=== PATIENT | female | born 1970 | race Caucasian/White ===

== ENCOUNTER 2016-10-24 07:58 | Emergency (ER) | payer SELFPAY ==
[~2016-10-24] VITALS: Ht 152.4 cm; Wt 48.0 kg
[~2016-10-24 07:58] MED LIST: ALBU18HF2 IH
[2016-10-24 08:20] VITALS: BP 101/70
[2016-10-24] MEDS ORDERED: PREDNISONE 20MG TABLET PO STA (09:23)
[2016-10-24] MEDS ORDERED: ALBUTEROL (0.083%) 2.5MG/3ML NEB HHN STA (09:23)
[2016-10-24] MEDS ORDERED: IPRATROPIUM BROMIDE (0.02%) 0.5MG/2.5ML NEB HHN STA (09:23)
== END 2016-10-24 10:31 | disposition home or self-care (01) ==
LOC: ER 07:58
DX: J45.901 Unspecified asthma with (acute) exacerbation (principal)
CPT/HCPCS: 94640; 99283; J7512; J7611; Z7610

== ENCOUNTER 2016-11-07 17:01 | Emergency (ER) | payer MEDICAID ==
[~2016-11-07] VITALS: Ht 152.4 cm; Wt 46.0 kg
[2016-11-07] MEDS ORDERED: IPRATROPIUM BROMIDE (0.02%) 0.5MG/2.5ML NEB HHN ONE (23:15)
[2016-11-07] MEDS ORDERED: METHYLPREDNISOLONE SOD SUCC 40 MG/ML VIAL IM ONE (23:15)
[2016-11-07] MEDS ORDERED: IPRATROPIUM/ALBUTEROL 0.5-3(2.5)MG/3ML NEB ONE (23:38)
[2016-11-08 00:45] VITALS: BP 109/66
== END 2016-11-08 00:45 | disposition home or self-care (01) ==
LOC: ER 17:01
DX: J45.901 Unspecified asthma with (acute) exacerbation (principal)
CPT/HCPCS: 71010; 94640; 99281; J2920; Z7610; J7620

== ENCOUNTER 2017-12-06 04:59 | Emergency (ER) | payer OTHER, MEDICAID ==
[~2017-12-06] VITALS: Ht 152.4 cm; Wt 48.8 kg
[2017-12-06 05:05] VITALS: BP 137/86
[2017-12-06] MEDS ORDERED: IPRATROPIUM/ALBUTEROL 0.5-3(2.5)MG/3ML NEB HHN ONE (05:30)
[2017-12-06 06:01] LABS: HEMOGLOBIN. 12.6 g/dL (12.0-16.0); MEAN CORPUSCULAR HEMOGLOBIN 28.6 pg (28.0-32.0); MEAN CORPUSCULAR VOLUME 86.6 fL (81.0-99.0); MEAN PLATELET VOLUME 7.6 fl (7.4-10.4); PLATELET 243 x1000/uL (130-400); RED BLOOD CELL COUNT 4.39 mill/uL (4.2-5.4); RED CELL DISTRIBUTION WIDTH 14.6 % (11.6-14.6)
[2017-12-06 06:09] LABS: CHLORIDE 110 mEq/L (98-107)
[2017-12-06] MEDS ORDERED: PREDNISONE 20MG TABLET PO ONE (06:30)
[2017-12-06 07:36] LABS: PLATELET ESTIMATE NORMAL
== END 2017-12-06 06:58 | disposition home or self-care (01) ==
LOC: ER 04:59
DX: J45.901 Unspecified asthma with (acute) exacerbation (principal)
CPT/HCPCS: 36415; 71045; 80048; 85025; 93005; 94640; 99285; J7512; J7620

== ENCOUNTER 2021-12-22 03:46 | Emergency (ER) | payer MEDICAID, OTHER ==
[~2021-12-22] VITALS: Ht 149.9 cm; Wt 46.7 kg
[2021-12-22] MEDS ORDERED: PREDNISONE 20MG TABLET PO STA (04:48)
[2021-12-22] MEDS ORDERED: IPRATROPIUM BROMIDE (0.02%) 0.5MG/2.5ML NEB HHN STA (04:48)
[2021-12-22] MEDS ORDERED: ALBUTEROL (0.083%) 2.5MG/3ML NEB HHN STA (04:48)
[2021-12-22] MEDS ORDERED: ASPIRIN 81MG TABLET PO ONE (05:00)
[2021-12-22 05:23] LABS: BASOPHILS % 0.3 % (0.0-2.0); EOSINOPHILS % 4.1 % (0.0-5.0); HEMATOCRIT. 40.5 % (36.0-48.0); HEMOGLOBIN. 13.7 g/dL (12.0-16.0); LYMPHOCYTES % 30.8 % (20.0-50.0); MEAN CORPUSCULAR HEMOGLOBIN 28.7 pg (28.0-32.0); MEAN CORPUSCULAR VOLUME 84.6 fL (81.0-99.0); MEAN PLATELET VOLUME 6.9 fl (7.4-10.4); MONOCYTES % 8.9 % (2.0-8.0); NEUTROPHILS % 55.9 % (40.0-76.0); PLATELET 246 x1000/uL (130-400); RED BLOOD CELL COUNT 4.79 mill/uL (4.2-5.4); RED CELL DISTRIBUTION WIDTH 13.8 % (11.6-14.6)
[2021-12-22 05:28] LABS: CHLORIDE 107 mEq/L (98-107)
[2021-12-22] MEDS ORDERED: ALBU6.7H9 INH (07:36)
[2021-12-22] MEDS ORDERED: P50 PO (07:36)
[2021-12-22 07:42] VITALS: BP 120/66
== END 2021-12-22 08:55 | disposition home or self-care (01) ==
LOC: ER 03:46
DX: J45.901 Unspecified asthma with (acute) exacerbation (principal)
CPT/HCPCS: 36415; 71045; 80053; 83880; 84484; 85025; 93005; 94640; 99285; J7512; Z7610